=== PATIENT | male | born 1995 | race Two or more races ===

== ENCOUNTER 2024-04-22 11:53 | Inpatient (IN) | payer OTHER ==
[~2024-04-22] VITALS: Ht 180.3 cm; Wt 88.1 kg
[2024-04-22] MEDS: TraMADol HCL 50 MG TABLET PO ONE (15:45)
[2024-04-22] MEDS ORDERED: ONDANSETRON HCL 4 MG/2 ML VIAL IVP PRN (19:30)
[2024-04-22] MEDS ORDERED: BISACODYL 10 MG RECTAL RECTAL SUPPOSITORY PR PRN (19:30)
[2024-04-22] MEDS ORDERED: ACETAMINOPHEN 325 MG TABLET PO PRN (19:30)
[2024-04-22] MEDS ORDERED: MAGNESIUM HYDROXIDE SUSPENSION 30 ML UDCUP PO PRN (19:30)
[2024-04-22 20:00] LABS: PH,URINE DRUG SCREEN 5.5 (5.0-8.0)
[2024-04-22 20:08] LABS: ALCOHOL, URINE DRUG SCREEN NEGATIVE (NEGATIVE); AMPHET/METH SCREEN,URINE NEGATIVE (NEGATIVE); BARBITURATE SCREEN, URINE NEGATIVE (NEGATIVE); BENZODIAZEPINES SCREEN,URINE NEGATIVE (NEGATIVE); CANNABINOID SCREEN,URINE NEGATIVE (NEGATIVE); COCAINE SCREEN,URINE NEGATIVE (NEGATIVE); METHADONE SCREEN, URINE NEGATIVE (NEGATIVE); OPIATE SCREEN,URINE NEGATIVE (NEGATIVE); PHENCYCLIDINE SCREEN,URINE NEGATIVE (NEGATIVE)
[2024-04-22] MEDS: DOCUSATE SODIUM 100 MG CAPSULE PO SCH (20:13)
[2024-04-22 21:00] VITALS: BP 130/72; PULSE 69; RESP 20; TEMP 98.8; O2SAT 99
[2024-04-22] MEDS: HEPARIN SODIUM,PORCINE 5,000 UNITS/ML VIAL SQ SCH (23:43)
[2024-04-23 05:08] VITALS: BP 125/72; PULSE 74; RESP 20; TEMP 98.9; O2SAT 96
[2024-04-23] MEDS ORDERED: SUGAMMADEX SODIUM 200 MG/2 ML VIAL IVP ONE (06:28)
[2024-04-23] MEDS ORDERED: CeFAZolin SODIUM 1 GM VIAL ONE ×2 (06:28→11:41)
[2024-04-23] MEDS ORDERED: 0.9% SODIUM CHLORIDE 10 ML VIAL ONE (06:28)
[2024-04-23] MEDS ORDERED: MORPHINE SULFATE 4 MG/ML SYRINGE ONE (06:28)
[2024-04-23] MEDS ORDERED: LIDOCAINE/PF 2% 5 ML VIAL ONE (06:28)
[2024-04-23] MEDS ORDERED: FentaNYL CITRATE PF 100 MCG/2 ML VIAL ONE (06:28)
[2024-04-23] MEDS ORDERED: ONDANSETRON HCL 4 MG/2 ML VIAL ONE (06:28)
[2024-04-23] MEDS ORDERED: KETOROLAC TROMETHAMINE 60 MG/2 ML VIAL IM ONE (06:28)
[2024-04-23] MEDS ORDERED: PROPOFOL 1% 20 ML VIAL IVP ONE (06:28)
[2024-04-23] MEDS ORDERED: METOPROLOL TARTRATE 5 MG/5 ML VIAL ONE (06:28)
[2024-04-23] MEDS ORDERED: MIDAZOLAM HCL 2 MG/2 ML VIAL ONE (06:28)
[2024-04-23] MEDS ORDERED: DEXAMETHASONE SOD PHOS 4 MG/ML VIAL ONE (06:28)
[2024-04-23] MEDS ORDERED: MORPHINE SULFATE/PF 0.5 MG/ML 10 ML AMP ONE (06:28)
[2024-04-23] MEDS ORDERED: ACETAMINOPHEN/ISO-OSM 1000 MG/100 ML BOTTLE IV ONE (06:28)
[2024-04-23] MEDS ORDERED: ROCURONIUM BROMIDE 10 MG/ML 5 ML VIAL ONE (06:28)
[2024-04-23 06:51] LABS: BASOPHILS % (AUTO) 0.1 % (0.0-2.0); EOSINOPHILS % (AUTO) 3.6 % (1.0-6.0); HEMOGLOBIN 14.1 g/dL (13.5-17.5); LYMPHOCYTES # (AUTO) 1.8 K/uL (1.0-4.8); LYMPHOCYTES % (AUTO) 23.4 % (22.0-44.0); MEAN CORPUSCULAR HEMOGLOBIN 30.8 pg (26.0-34.0); MEAN CORPUSCULAR HGB CONC 34.5 G/dL (31.0-37.0); MEAN CORPUSCULAR VOLUME 89 fL (80-100); MONOCYTES # (AUTO) 0.8 K/uL (0.1-1.0); MONOCYTES % (AUTO) 10.5 % (2.0-9.0); NEUTROPHILS # (AUTO) 4.7 K/uL (1.8-7.7); NEUTROPHILS % (AUTO) 62.4 % (40.0-70.0); PLATELET COUNT (AUTO) 328 K/uL (150-450); RED BLOOD CELL COUNT(AUTO) 4.59 MIL/uL (4.50-5.90); RED CELL DISTRIBUTION WIDTH 14.5 % (11.5-14.5); WHITE BLOOD COUNT (AUTO) 7.5 K/uL (4.5-11.0)
[2024-04-23 07:01] LABS: ANION GAP 6 mmol/L (8-16); CALCIUM, TOTAL 8.8 mg/dL (8.8-10.5); CARBON DIOXIDE 27 mmol/L (22-29); CHLORIDE 106 mmol/L (98-107); CREATININE 1.06 mg/dL (0.60-1.30); GLOMERULAR FILTR. RATE CALC > 60 mL/min (>60); GLUCOSE,RANDOM 93 mg/dL (70-110); POTASSIUM 3.8 mmol/L (3.5-5.1); SODIUM SERUM 139 mmol/L (136-145); UREA NITROGEN, BLOOD 11 mg/dL (7-18)
[2024-04-23 08:12] VITALS: BP 105/57; PULSE 78; RESP 18; TEMP 98.5; O2SAT 95
[2024-04-23] MEDS: PANTOPRAZOLE SODIUM 40 MG DR TABLET PO SCH (08:36)
[2024-04-23] MEDS: DEXTROSE 5%-0.45% SODIUM CHL 1,000 ML IV ONE (09:13)
[2024-04-23] MEDS ORDERED: RINGERS SOLUTION,LACTATED 1,000 ML IV ONE (11:42)
[2024-04-23] MEDS ORDERED: SODIUM CL IRRIG SOLN BAG 3,000 ML IRRIG ONE (11:42)
[2024-04-23] MEDS ORDERED: VANCOMYCIN HCL 1 GM VIAL ONE (11:42)
[2024-04-23] MEDS ORDERED: CHLORHEXIDINE GLUCONATE 2% TOWELETTE [2'S/6'S] TP ONE (12:00)
[2024-04-23] MEDS ORDERED: ETHYL ALCOHOL 62% ANTISEPTIC NASAL SANITIZER 0.6 ML AMPUL NASAL ONE (12:00)
[2024-04-23] MEDS ORDERED: FentaNYL CITRATE PF 100 MCG/2 ML VIAL IVP PRN (12:45)
[2024-04-23] MEDS ORDERED: HYDROmorphone HCL 2 MG/ML SYRINGE IVP PRN (12:45)
[2024-04-23] MEDS ORDERED: MEPERIDINE-PF 25 MG/ML VIAL IVP PRN (12:45)
[2024-04-23] MEDS: BUPIVACAINE LIPOSOME/PF 1.3%-13.3MG/ML SUSP 20 ML VIAL INJ ONE (14:05)
[2024-04-23] MEDS: BUPIVACAINE HCL/PF 0.5% 30 ML VIAL ONE (14:05)
[2024-04-23] MEDS: MUPIROCIN CALCIUM 2% 22 GM OINTMENT ONE (14:15)
[2024-04-23 20:41] VITALS: BP 119/71; PULSE 86; RESP 18; TEMP 98; O2SAT 97
[2024-04-23] MEDS: ASPIRIN 81 MG CHEWABLE TABLET PO SCH (20:56)
[2024-04-23 21:00] VITALS: PULSE 95; RESP 20; O2SAT 96
[2024-04-23] MEDS: HYDROCODONE/ACETAMINOPHEN 5-325 MG TABLET PO PRN (21:02)
[2024-04-23] MEDS: CeFAZolin 2 GM/DEXTROSE 50 ML IV SCH (23:32)
[2024-04-24] MEDS: MORPHINE SULFATE 2 MG/ML SYRINGE IVP PRN (00:59)
[2024-04-24 04:44] VITALS: BP 112/72; PULSE 77; RESP 18; TEMP 98.8; O2SAT 95
[2024-04-24 08:54] LABS: ANION GAP 6 mmol/L (8-16); CALCIUM, TOTAL 8.5 mg/dL (8.8-10.5); CARBON DIOXIDE 26 mmol/L (22-29); CHLORIDE 106 mmol/L (98-107); CREATININE 1.14 mg/dL (0.60-1.30); GLOMERULAR FILTR. RATE CALC > 60 mL/min (>60); GLUCOSE,RANDOM 120 mg/dL (70-110); POTASSIUM 4.1 mmol/L (3.5-5.1); SODIUM SERUM 138 mmol/L (136-145); UREA NITROGEN, BLOOD 12 mg/dL (7-18)
[2024-04-24 09:23] LABS: BASOPHILS % (AUTO) 0.3 % (0.0-2.0); EOSINOPHILS % (AUTO) 0.3 % (1.0-6.0); HEMATOCRIT 38.7 % (41-53); HEMOGLOBIN 13.3 g/dL (13.5-17.5); LYMPHOCYTES # (AUTO) 1.4 K/uL (1.0-4.8); LYMPHOCYTES % (AUTO) 13.2 % (22.0-44.0); MEAN CORPUSCULAR HEMOGLOBIN 30.7 pg (26.0-34.0); MEAN CORPUSCULAR HGB CONC 34.4 G/dL (31.0-37.0); MEAN CORPUSCULAR VOLUME 89 fL (80-100); MONOCYTES # (AUTO) 1.1 K/uL (0.1-1.0); MONOCYTES % (AUTO) 10.3 % (2.0-9.0); NEUTROPHILS % (AUTO) 75.9 % (40.0-70.0); PLATELET COUNT (AUTO) 342 K/uL (150-450); RED BLOOD CELL COUNT(AUTO) 4.34 MIL/uL (4.50-5.90); RED CELL DISTRIBUTION WIDTH 14.3 % (11.5-14.5); WHITE BLOOD COUNT (AUTO) 10.5 K/uL (4.5-11.0)
[2024-04-24] MEDS ORDERED: SODIUM CHLORIDE 0.9% 500 ML IV ONE (16:28)
[2024-04-24 19:52] VITALS: BP 112/69; PULSE 103; RESP 20; TEMP 98.6; O2SAT 95
[2024-04-25 05:41] VITALS: BP 123/74; PULSE 96; RESP 18; TEMP 98.8; O2SAT 96
[2024-04-25 08:34] VITALS: BP 148/86; PULSE 77; RESP 18; TEMP 98.4; O2SAT 96
[2024-04-25 08:42] LABS: BASOPHILS % (AUTO) 0.3 % (0.0-2.0); EOSINOPHILS % (AUTO) 2.4 % (1.0-6.0); HEMATOCRIT 39.1 % (41-53); HEMOGLOBIN 13.5 g/dL (13.5-17.5); LYMPHOCYTES # (AUTO) 2.1 K/uL (1.0-4.8); LYMPHOCYTES % (AUTO) 26.2 % (22.0-44.0); MEAN CORPUSCULAR HEMOGLOBIN 30.7 pg (26.0-34.0); MEAN CORPUSCULAR HGB CONC 34.5 G/dL (31.0-37.0); MEAN CORPUSCULAR VOLUME 89 fL (80-100); MONOCYTES # (AUTO) 0.8 K/uL (0.1-1.0); MONOCYTES % (AUTO) 9.4 % (2.0-9.0); NEUTROPHILS # (AUTO) 4.9 K/uL (1.8-7.7); NEUTROPHILS % (AUTO) 61.7 % (40.0-70.0); PLATELET COUNT (AUTO) 341 K/uL (150-450); RED BLOOD CELL COUNT(AUTO) 4.39 MIL/uL (4.50-5.90)
[2024-04-25 08:50] LABS: ANION GAP 7 mmol/L (8-16); CALCIUM, TOTAL 8.6 mg/dL (8.8-10.5); CARBON DIOXIDE 29 mmol/L (22-29); CHLORIDE 106 mmol/L (98-107); CREATININE 1.08 mg/dL (0.60-1.30); GLOMERULAR FILTR. RATE CALC > 60 mL/min (>60); GLUCOSE,RANDOM 99 mg/dL (70-110); POTASSIUM 3.8 mmol/L (3.5-5.1); SODIUM SERUM 142 mmol/L (136-145); UREA NITROGEN, BLOOD 7 mg/dL (7-18)
[2024-04-25 18:03] VITALS: BP 135/83; RESP 17; O2SAT 96
[2024-04-25 19:30] VITALS: BP 132/76; PULSE 96; RESP 18; TEMP 98.6; O2SAT 96
[2024-04-25] MEDS: AMOX TR/POT CLAV 500 MG/125 MG TABLET PO SCH (20:41)
[2024-04-26 04:50] VITALS: BP 139/81; PULSE 81; RESP 18; TEMP 98.6; O2SAT 100
[2024-04-26 07:39] VITALS: BP 132/80; PULSE 84; RESP 20; TEMP 99; O2SAT 96
[2024-04-26] MEDS: OXYGEN THERAPY IH SCH (20:00)
[2024-04-26 20:13] VITALS: BP 144/80; PULSE 103; RESP 19; TEMP 98.6; O2SAT 95
[2024-04-26] MEDS: ZOLPIDEM TARTRATE 5 MG TABLET PO PRN (20:27)
[2024-04-27 04:40] VITALS: BP 120/72; PULSE 79; RESP 18; TEMP 98.5; O2SAT 97
[2024-04-27 08:11] VITALS: BP 131/76; PULSE 83; RESP 18; TEMP 99.1; O2SAT 96
== END 2024-04-27 15:45 | disposition home or self-care (01) | DRG 489 ==
LOC: EMS 11:53 → EDH 19:27 → 6S 20:53
PROVIDERS: ADMIT Internal Medicine; ATTEND Internal Medicine
PROC: 0SSC04Z Reposition Right Knee Joint with Internal Fixation Device, Open Approach (ICD-10-PCS; principal; 2024-04-23 13:30)
DX: S82.141A Displaced bicondylar fracture of right tibia, initial encounter for closed fracture (principal); W13.2XXA Fall from, out of or through roof, initial encounter; Z79.82 Long term (current) use of aspirin; Y93.89 Activity, other specified; Y92.89 Other specified places as the place of occurrence of the external cause; Y99.8 Other external cause status
CPT/HCPCS: 73700; 80048; 80307; 85025; 87081; 97110; 97116; 97140; 97162; 97165; 97530; 97535; 99285; G0238; J0131; J0666; J0690; J1100; J1644; J1885; J2250; J2270; J2274; J2405; J2704; J3010; J3370; J3490; J7040; J7120